=== PATIENT | female | born 1990 | race African-American/Black ===

== ENCOUNTER 2016-12-09 15:31 | Emergency (ER) | payer MEDICAID | END 2016-12-09 17:30 | disposition home or self-care (01) | LOC: D.ER 15:31 | DX: G43.909 Migraine, unspecified, not intractable, without status migrainosus (principal); E86.0 Dehydration; J06.9 Acute upper respiratory infection, unspecified; H66.92 Otitis media, unspecified, left ear ==

== ENCOUNTER 2018-02-10 21:00 | Outpatient (CLI) | payer MEDICAID ==
[2018-02-10 21:36] LABS: BASOPHILS 0.1 % (0-2); HEMATOCRIT 28.5 % (36.0-48.0); HEMOGLOBIN 9.3 g/dL (12-16); IMMATURE GRANULOCYTES 0.2 % (0-5); LYMPHOCYTES 26.4 % (15-50); MCH 21.7 pg (26.0-34.0); MCHC 32.6 g/dL (31.0-37.0); MCV 66.6 fL (80.0-100.0); MEAN PLATELET VOLUME 10.7 fL (7.4-10.4); MONOCYTES 4.9 % (2-11); NEUTROPHILS 64.4 % (40-80); PLATELET COUNT 229 10x3/uL (130-400); RBC 4.28 10x6/uL (4.00-5.40); WBC 10.8 10x3/uL (4.8-10.8)
[2018-02-10 21:55] LABS: COLOR YELLOW (YELLOW)
[2018-02-10 21:56] LABS: APPEARANCE CLEAR (CLEAR); BACTERIA MODERATE /hpf (NONE SEEN); BILIRUBIN NEGATIVE (NEGATIVE); GLUCOSE NEGATIVE (NEGATIVE); KETONE NEGATIVE (NEGATIVE); NITRITE NEGATIVE (NEGATIVE); PROTEIN NEGATIVE (NEGATIVE); RED CELLS - URINE OCC /hpf (0-5); SPECIFIC GRAVITY 1.015 (1.005-1.020); UROBILINOGEN NORMAL (NORMAL); WHITE CELLS - URINE 0-5 /hpf (0-5)
[2018-02-10 22:23] LABS: ALBUMIN 2.9 g/dL (3.4-5.0); ALKALINE PHOSPHATASE 54 U/L (46-116); ALT (SGPT) 16 U/L (10-68); BILIRUBIN - TOTAL 0.17 mg/dL (0.2-1.3); CALC OSMOLALITY 269 mosm/kg (275-300); CALCIUM 8.4 mg/dL (8.5-10.1); CARBON DIOXIDE 24.1 mmol/L (21.0-32.0); CHLORIDE - SERUM 106 mmol/L (98-107); CREATININE - SERUM 0.4 mg/dL (0.6-1.3); GLUCOSE 81 mg/dL (74-106); POTASSIUM - SERUM 3.4 mmol/L (3.5-5.1); PROTEIN - SERUM 6.5 g/dL (6.4-8.2); SODIUM 137 mmol/L (136-145); UREA NITROGEN 5 mg/dL (7-18); eGFR NON AFRICAN AMERICAN > 90 mL/min (90-120)
[2018-02-10 22:25] LABS: UDS - AMPHET NEGATIVE QUAL (NEGATIVE); UDS - BARB NEGATIVE QUAL (NEGATIVE); UDS - BENZO NEGATIVE QUAL (NEGATIVE); UDS - COCAINE NEGATIVE QUAL (NEGATIVE); UDS - OPIATE NEGATIVE QUAL (NEGATIVE); UDS - PCP NEGATIVE QUAL (NEGATIVE); UDS - THC NEGATIVE QUAL (NEGATIVE)
== END 2018-02-10 22:57 | disposition home or self-care (01) ==
LOC: D.LDO 21:00
PROVIDERS: Obstetrics & Gynecology
DX: O21.9 Vomiting of pregnancy, unspecified (principal); Z3A.25 25 weeks gestation of pregnancy; R10.9 Unspecified abdominal pain

== ENCOUNTER 2019-03-14 20:03 | Emergency (ER) | payer MEDICAID ==
[~2019-03-14] VITALS: Ht 154.9 cm; Wt 78.0 kg
[2019-03-14 20:26] VITALS: Ht 154.9 cm; Wt 78.0 kg
[2019-03-14 20:43] LABS: BASOPHILS 0.3 % (0-2); EOSINOPHILS 1.4 % (0-7); HEMATOCRIT 37.4 % (36.0-48.0); HEMOGLOBIN 12.6 g/dL (12-16); IMMATURE GRANULOCYTES 0.2 % (0-5); LYMPHOCYTES 27.5 % (15-50); MCH 21.7 pg (26.0-34.0); MCHC 33.7 g/dL (31.0-37.0); MCV 64.4 fL (80.0-100.0); MEAN PLATELET VOLUME 10.1 fL (7.4-10.4); MONOCYTES 5.2 % (2-11); NEUTROPHILS 65.4 % (40-80); PLATELET COUNT 240 10x3/uL (130-400); RBC 5.81 10x6/uL (4.00-5.40); RDW 16.4 % (11.5-14.5); WBC 11.9 10x3/uL (4.8-10.8)
[2019-03-14 20:47] LABS: HCG URINE NEGATIVE (NEGATIVE)
[2019-03-14 20:49] LABS: APPEARANCE CLEAR (CLEAR); BILIRUBIN NEGATIVE (NEGATIVE); COLOR YELLOW (YELLOW); GLUCOSE NEGATIVE (NEGATIVE); KETONE NEGATIVE (NEGATIVE); NITRITE NEGATIVE (NEGATIVE); PROTEIN NEGATIVE (NEGATIVE); SPECIFIC GRAVITY 1.025 (1.005-1.020); UROBILINOGEN NORMAL (NORMAL)
[2019-03-14 21:08] LABS: ALBUMIN 4.3 g/dL (3.4-5.0); ALKALINE PHOSPHATASE 78 U/L (46-116); ALT (SGPT) 15 U/L (10-68); AMYLASE - SERUM 36 U/L (25-115); BILIRUBIN - TOTAL 0.35 mg/dL (0.2-1.3); CALC OSMOLALITY 278 mosm/kg (275-300); CALCIUM 9.6 mg/dL (8.5-10.1); CHLORIDE - SERUM 104 mmol/L (98-107); CREATININE - SERUM 0.8 mg/dL (0.6-1.3); GLUCOSE 84 mg/dL (74-106); LIPASE 145 U/L (73-393); POTASSIUM - SERUM 3.6 mmol/L (3.5-5.1); SODIUM 141 mmol/L (136-145); UREA NITROGEN 9 mg/dL (7-18); eGFR NON AFRICAN AMERICAN 90 mL/min (90-120)
[2019-03-14 21:47] VITALS: BP 122/85
== END 2019-03-14 21:52 | disposition home or self-care (01) ==
LOC: D.ER 20:03
PROVIDERS: Family Medicine
DX: N89.8 Other specified noninflammatory disorders of vagina (principal)

== ENCOUNTER 2020-09-21 19:41 | Emergency (ER) | payer MEDICAID ==
[~2020-09-21] VITALS: Ht 154.9 cm; Wt 72.7 kg
[2020-09-21 19:50] VITALS: BP 127/73; Ht 154.9 cm; Wt 72.7 kg
[2020-09-21 20:34] LABS: BASOPHILS 0.2 % (0-2); EOSINOPHILS 4.4 % (0-7); HEMATOCRIT 36.1 % (36.0-48.0); HEMOGLOBIN 11.7 g/dL (12-16); IMMATURE GRANULOCYTES 0.1 % (0-5); LYMPHOCYTE ABS# 2.82 10x3/uL (1.18-3.74); LYMPHOCYTES 35.2 % (15-50); MCH 21.4 pg (26.0-34.0); MCHC 32.4 g/dL (31.0-37.0); MONOCYTES 5.1 % (2-11); NEUTROPHIL ABS# 4.41 10x3/uL (1.56-6.13); PLATELET COUNT 243 10x3/uL (130-400); RBC 5.47 10x6/uL (4.00-5.40); RDW 16.3 % (11.5-14.5)
[2020-09-21 20:36] LABS: CALC OSMOLALITY 274 mosm/kg (275-300); CARBON DIOXIDE 24.4 mmol/L (21.0-32.0); CHLORIDE - SERUM 104 mmol/L (98-107); CREATININE - SERUM 0.7 mg/dL (0.6-1.3); GLUCOSE 89 mg/dL (74-106); POTASSIUM - SERUM 3.9 mmol/L (3.5-5.1); SODIUM 138 mmol/L (136-145); UREA NITROGEN 13 mg/dL (7-18); eGFR NON AFRICAN AMERICAN > 90 mL/min (90-120)
[2020-09-21 20:42] LABS: ALBUMIN 3.9 g/dL (3.4-5.0); ALKALINE PHOSPHATASE 62 U/L (30-120); ALT (SGPT) 18 U/L (10-68); BILIRUBIN - TOTAL 0.31 mg/dL (0.2-1.3); LIPASE 126 U/L (73-393); PROTEIN - SERUM 7.6 g/dL (6.4-8.2)
[2020-09-21 20:49] LABS: C-REACTIVE PROTEIN < 0.2 mg/dL (0.0-0.9)
[2020-09-21 22:01] LABS: BACTERIA MANY HPF (NONE SEEN); BILIRUBIN NEGATIVE (NEGATIVE); KETONE NEGATIVE (NEGATIVE); NITRITE NEGATIVE (NEGATIVE); SQUAMOUS EPITHELIAL 0-5 HPF (0-4); UROBILINOGEN NORMAL mg/dL (< 2)
[2020-09-21 22:02] LABS: HCG URINE NEGATIVE (NEGATIVE)
[2020-09-21] MEDS ORDERED: FLAGYL500 MG PO (22:35)
== END 2020-09-21 22:53 | disposition home or self-care (01) ==
LOC: D.ER 19:41
PROVIDERS: Family Medicine
DX: M54.5 Low back pain (principal); R10.2 Pelvic and perineal pain